=== PATIENT | female | born 1935 | race Caucasian/White ===

== ENCOUNTER → 2016-12-13 | Outpatient (CLI) | payer MEDICARE, BC ==
[~2016-12-13] MED LIST: ALBUTEROL0.83 MG/ML IH; AMOXICILLIN875 MG PO; ASPIRIN 32325 MG/TAB PO; CEPHALEXIN500 M1 PO; CIPRO 500MG TA500 MG PO; DROSPIRENONE; ELAVIL50 MG PO; FLONASE0.05 MG/AC NS; K-TAB20 PO; NEXIUM PO; RESTORIL30 MG PO; UNKNOWN BP MED; UNKNOWN CHOLESTEROL; ZOFRAN 4MG T4 MG/TAB PO
== END ==
LOC: MC.RAD 13:20
DX: Z12.31 Encounter for screening mammogram for malignant neoplasm of breast (principal)

== ENCOUNTER → 2018-10-21 | Outpatient (CLI) | payer MEDICARE, BC ==
[2018-10-21 15:59] LABS: COLLECTION METHOD RANDOM VOIDED
[2018-10-21 16:09] LABS: MUCOUS Present /lpf; PH 5 (5-8); SQUAMOUS EPITHELIAL 0-2 /hpf; URINE APPEARANCE Turbid; URINE BACTERIA Rare /hpf; URINE BILIRUBIN Negative (NEGATIVE); URINE BLOOD 1+ (NEGATIVE); URINE COLOR Yellow; URINE GLUCOSE Negative (NEGATIVE); URINE KETONE Trace (NEGATIVE); URINE LEUKOCYTE ESTERASE 2+ (NEGATIVE); URINE NITRATE Negative (NEGATIVE); URINE PROTEIN(semi-quant) 1+ (NEGATIVE); URINE WBC 20-50 /hpf
== END ==
LOC: ZCOL.LAB 15:18
PROVIDERS: Internal Medicine
DX: R41.82 Altered mental status, unspecified (principal); R41.0 Disorientation, unspecified

== ENCOUNTER → 2018-10-23 | Outpatient (CLI) | payer MEDICARE, BC ==
[2018-10-23 11:40] LABS: BASO # 0.1 (0.0-0.2); BASO % 0.9 % (0.0-2.0); EOS # 0.1 (0.0-0.7); GRAN # 4.8 (1.4-6.5); GRAN % 74.7 % (42.2-75.2); HEMATOCRIT 38.9 % (37.0-47.0); HEMOGLOBIN 12.6 g/dl (12.5-16.0); LYMPH # 0.9 (1.2-3.4); LYMPH % 13.7 % (20.0-51.0); MEAN CELL VOLUME 84 fl (80.0-100.0); MEAN CORPUSCULAR HEMOGLOBIN 27 pg (27.0-31.0); MEAN CORPUSCULAR HGB CONC 32 g/dl (33.0-37.0); MEAN PLATELET VOLUME 10.2 fl (7.4-10.4); MONO # 0.5 (0.1-0.6); MONO % 8.2 % (1.7-9.3); PLATELET COUNT 327 K/mm3 (130-400); RED BLOOD COUNT 4.63 M/mm3 (4.10-5.30); REDCELL DISTRIBUTION WIDTH-CV 13.5 % (11.5-14.5)
[2018-10-23 11:57] LABS: ALBUMIN 3.5 gm/dL (3.5-5.0); BILIRUBIN,TOTAL 0.6 mg/dL (0.0-1.0); CALCIUM 8.8 mg/dL (8.4-10.2); CREATININE, serum 0.65 mg/dL (0.52-1.25); POTASSIUM 3.5 mmol/L (3.4-5.0); TOTAL PROTEIN 6.4 gm/dL (6.4-8.2)
== END ==
LOC: ZCOL.LAB 11:30 → ZLAB.STJ 14:47
DX: R41.0 Disorientation, unspecified (principal); R41.82 Altered mental status, unspecified

== ENCOUNTER → 2018-12-26 | Outpatient (CLI) | payer MEDICARE, BC ==
[2018-12-26 13:24] LABS: COLLECTION METHOD CLEAN CATCH
[2018-12-26 15:03] LABS: MUCOUS Present /lpf; PH 7 (5-8); SQUAMOUS EPITHELIAL 0-2 /hpf; URINE APPEARANCE Cloudy; URINE BACTERIA Moderate /hpf; URINE BILIRUBIN Negative (NEGATIVE); URINE BLOOD 1+ (NEGATIVE); URINE COLOR Yellow; URINE GLUCOSE Negative (NEGATIVE); URINE KETONE Negative (NEGATIVE); URINE LEUKOCYTE ESTERASE 3+ (NEGATIVE); URINE NITRATE Positive (NEGATIVE); URINE PROTEIN(semi-quant) Negative (NEGATIVE); URINE UROBILINOGEN Negative (NEGATIVE); URINE WBC >50 /hpf
== END ==
LOC: ZCOL.LAB 13:20
DX: R30.0 Dysuria (principal); R41.82 Altered mental status, unspecified; R53.83 Other fatigue

== ENCOUNTER → 2019-01-09 | Outpatient (CLI) | payer MEDICARE, BC ==
[2019-01-09 14:40] LABS: COLLECTION METHOD CLEAN CATCH
[2019-01-09 15:04] LABS: MUCOUS Present /lpf; PH 5 (5-8); SQUAMOUS EPITHELIAL 0-2 /hpf; URINE APPEARANCE Cloudy; URINE BACTERIA None Seen /hpf; URINE BILIRUBIN Negative (NEGATIVE); URINE BLOOD Negative (NEGATIVE); URINE COLOR Yellow; URINE GLUCOSE Negative (NEGATIVE); URINE KETONE Negative (NEGATIVE); URINE LEUKOCYTE ESTERASE 3+ (NEGATIVE); URINE NITRATE Positive (NEGATIVE); URINE PROTEIN(semi-quant) Negative (NEGATIVE); URINE UROBILINOGEN Negative (NEGATIVE); URINE WBC >50 /hpf
== END ==
LOC: ZCOL.LAB 14:29
DX: R30.0 Dysuria (principal); R41.82 Altered mental status, unspecified; R53.83 Other fatigue

== ENCOUNTER → 2019-03-28 | Outpatient (CLI) | payer MEDICARE, BC ==
[2019-03-28 22:25] LABS: COLLECTION METHOD CLEAN CATCH
[2019-03-28 22:34] LABS: AMORPHOUS CRYSTAL Present /uL; MUCOUS Present /lpf; PH 5 (5-8); SQUAMOUS EPITHELIAL 0-2 /hpf; URINE APPEARANCE Clear; URINE BACTERIA None Seen /hpf; URINE BILIRUBIN Negative (NEGATIVE); URINE BLOOD Negative (NEGATIVE); URINE CALCIUM OXALATE CRYSTAL Present /hpf; URINE COLOR Yellow; URINE GLUCOSE Negative (NEGATIVE); URINE KETONE Negative (NEGATIVE); URINE LEUKOCYTE ESTERASE Trace (NEGATIVE); URINE NITRATE Negative (NEGATIVE); URINE PROTEIN(semi-quant) Negative (NEGATIVE); URINE RBC 0-2 /hpf; URINE UROBILINOGEN Negative (NEGATIVE)
== END ==
LOC: ZCOL.LAB 21:55
PROVIDERS: Family Medicine
DX: R41.82 Altered mental status, unspecified (principal)

== ENCOUNTER → 2019-06-25 | Outpatient (CLI) | payer MEDICARE, BC ==
[2019-06-25 16:44] LABS: COLLECTION METHOD CLEAN CATCH
[2019-06-25 18:04] LABS: MUCOUS Present /lpf; PH 5 (5-8); SQUAMOUS EPITHELIAL 0-2 /hpf; URINE APPEARANCE Cloudy; URINE BACTERIA Moderate /hpf; URINE BILIRUBIN Negative (NEGATIVE); URINE BLOOD Negative (NEGATIVE); URINE CALCIUM OXALATE CRYSTAL Present /hpf; URINE COLOR Yellow; URINE GLUCOSE Negative (NEGATIVE); URINE KETONE Negative (NEGATIVE); URINE LEUKOCYTE ESTERASE 3+ (NEGATIVE); URINE NITRATE Positive (NEGATIVE); URINE PROTEIN(semi-quant) Negative (NEGATIVE); URINE UROBILINOGEN Negative (NEGATIVE); URINE WBC >50 /hpf
== END ==
LOC: EDBD 16:18 → ZCOL.LAB 16:18
PROVIDERS: Family Medicine
DX: J44.9 Chronic obstructive pulmonary disease, unspecified (principal)

== ENCOUNTER → 2019-08-11 | Outpatient (CLI) | payer MEDICARE, BC ==
[2019-08-11 10:41] LABS: ALBUMIN 3.6 gm/dL (3.5-5.0); BILIRUBIN UNCONJUGATED 0.2 mg/dL (0.0-1.1); BILIRUBIN,TOTAL 0.2 mg/dL (0.0-1.0); TOTAL PROTEIN 6.5 gm/dL (6.4-8.2)
[2019-08-11 11:23] LABS: CHOLESTEROL RISK RATIO 3.8
[2019-08-11 11:24] LABS: PROLACTIN 77.4 ng/mL (3.0-18.6)
== END ==
LOC: ZCOL.LAB 07:49
PROVIDERS: Internal Medicine
DX: Z13.220 Encounter for screening for lipoid disorders (principal); E78.5 Hyperlipidemia, unspecified; D51.9 Vitamin B12 deficiency anemia, unspecified; E21.1 Secondary hyperparathyroidism, not elsewhere classified; R94.5 Abnormal results of liver function studies; R73.09 Other abnormal glucose

== ENCOUNTER → 2019-10-02 | Outpatient (CLI) | payer MEDICARE, BC ==
[~2019-10-02] MED LIST changes: +ATIVAN 0.50.5 MG/TAB PO
[2019-10-02 20:09] LABS: COLLECTION METHOD CLEAN CATCH
[2019-10-02 20:17] LABS: MUCOUS Present /lpf; PH 5 (5-8); SQUAMOUS EPITHELIAL None Seen /hpf; URINE APPEARANCE Clear; URINE BACTERIA Rare /hpf; URINE BILIRUBIN Negative (NEGATIVE); URINE BLOOD Negative (NEGATIVE); URINE COLOR Colorless; URINE GLUCOSE Negative (NEGATIVE); URINE KETONE Negative (NEGATIVE); URINE LEUKOCYTE ESTERASE Negative (NEGATIVE); URINE NITRATE Negative (NEGATIVE); URINE PROTEIN(semi-quant) Negative (NEGATIVE); URINE RBC 0-2 /hpf; URINE UROBILINOGEN Negative (NEGATIVE)
== END ==
LOC: ZCOL.LAB 19:45
PROVIDERS: Internal Medicine
DX: N39.0 Urinary tract infection, site not specified (principal)

== ENCOUNTER 2019-11-05 13:42 | Emergency (ER) | payer MEDICARE, BC ==
[~2019-11-05] VITALS: Ht 170.2 cm; Wt 66.4 kg
[2019-11-05 13:46] VITALS: BP 130/75; TEMP 98
[2019-11-05 16:27] VITALS: PULSE 70
== END 2019-11-05 16:27 | disposition home or self-care (01) ==
LOC: COL.ER 13:42
DX: S52.502A Unspecified fracture of the lower end of left radius, initial encounter for closed fracture (principal); S01.81XA Laceration without foreign body of other part of head, initial encounter; K21.9 Gastro-esophageal reflux disease without esophagitis; F03.90 Unspecified dementia, unspecified severity, without behavioral disturbance, psychotic disturbance, mood disturbance, and anxiety; R40.2412 Glasgow coma scale score 13-15, at arrival to emergency department; W01.0XXA Fall on same level from slipping, tripping and stumbling without subsequent striking against object, initial encounter; Y92.129 Unspecified place in nursing home as the place of occurrence of the external cause
CPT/HCPCS: Q4050

== ENCOUNTER 2019-11-24 13:09 | Emergency (ER) | payer MEDICARE, BC ==
[~2019-11-24] VITALS: Ht 170.2 cm; Wt 59.1 kg
[2019-11-24 13:18] VITALS: TEMP 98
[2019-11-24 14:23] LABS: BASO # 0.1 (0.0-0.2); BASO % 1.4 % (0.0-2.0); EOS # 0.7 (0.0-0.7); GRAN # 6.7 (1.4-6.5); GRAN % 67.5 % (42.2-75.2); HEMOGLOBIN 11.2 g/dl (12.5-16.0); LYMPH # 1.5 (1.2-3.4); LYMPH % 14.9 % (20.0-51.0); MEAN CELL VOLUME 86 fl (80.0-100.0); MEAN CORPUSCULAR HEMOGLOBIN 27 pg (27.0-31.0); MEAN CORPUSCULAR HGB CONC 31 g/dl (33.0-37.0); MEAN PLATELET VOLUME 9.5 fl (7.4-10.4); MONO # 0.9 (0.1-0.6); PLATELET COUNT 316 K/mm3 (130-400); RED BLOOD COUNT 4.14 M/mm3 (4.10-5.30); REDCELL DISTRIBUTION WIDTH-CV 13.8 % (11.5-14.5)
[2019-11-24 14:28] LABS: HEMATOCRIT 35.7 % (37.0-47.0)
[2019-11-24 14:35] LABS: CALCIUM 8.5 mg/dL (8.4-10.2); CREATININE, serum 0.68 (0.52-1.25); POTASSIUM 4.6 mmol/L (3.4-5.0)
[2019-11-24 14:44] LABS: PROTHROMBIN TIME 11.2 SECONDS (9.7-12.8)
[2019-11-24 14:47] LABS: PARTIAL THROMBOPLASTIN TIME 29.6 SECONDS (26.0-37.0)
[2019-11-24 16:35] VITALS: BP 148/74; PULSE 71
== END 2019-11-24 16:35 | disposition home or self-care (01) ==
LOC: COL.ER 13:09
PROVIDERS: Emergency Medicine
DX: S70.02XA Contusion of left hip, initial encounter (principal); W19.XXXA Unspecified fall, initial encounter; Y92.129 Unspecified place in nursing home as the place of occurrence of the external cause

== ENCOUNTER → 2019-11-26 | Outpatient (CLI) | payer MEDICARE, BC ==
[2019-11-26 08:39] LABS: BASO # 0.1 (0.0-0.2); BASO % 1.6 % (0.0-2.0); EOS # 0.7 (0.0-0.7); EOS % 8.4 % (0-4.0); GRAN # 4.6 (1.4-6.5); HEMOGLOBIN 10.9 g/dl (12.5-16.0); LYMPH # 1.7 (1.2-3.4); MEAN CELL VOLUME 87 fl (80.0-100.0); MEAN CORPUSCULAR HEMOGLOBIN 27 pg (27.0-31.0); MEAN CORPUSCULAR HGB CONC 32 g/dl (33.0-37.0); MEAN PLATELET VOLUME 9.9 fl (7.4-10.4); MONO % 11.8 % (1.7-9.3); PLATELET COUNT 315 K/mm3 (130-400); REDCELL DISTRIBUTION WIDTH-CV 14.3 % (11.5-14.5)
[2019-11-26 08:41] LABS: HEMATOCRIT 34.6 % (37.0-47.0)
== END ==
LOC: ZCOL.LAB 08:15
PROVIDERS: Internal Medicine
DX: J44.9 Chronic obstructive pulmonary disease, unspecified (principal); R68.89 Other general symptoms and signs

== ENCOUNTER 2019-12-05 14:52 | Emergency (ER) | payer MEDICARE, BC ==
[~2019-12-05] VITALS: Ht 170.2 cm; Wt 59.1 kg
[~2019-12-05 14:52] MED LIST changes: +NEXIUM 20MG20 MG PO
[2019-12-05 14:59] VITALS: BP 132/69; PULSE 72; TEMP 98.3
[2019-12-05 16:26] LABS: BASO # 0.1 (0.0-0.2); BASO % 0.8 % (0.0-2.0); EOS # 0.5 (0.0-0.7); EOS % 6.6 % (0-4.0); GRAN # 4.9 (1.4-6.5); HEMOGLOBIN 10.7 g/dl (12.5-16.0); LYMPH # 1.4 (1.2-3.4); LYMPH % 17.4 % (20.0-51.0); MEAN CELL VOLUME 87 fl (80.0-100.0); MEAN CORPUSCULAR HEMOGLOBIN 27 pg (27.0-31.0); MEAN CORPUSCULAR HGB CONC 32 g/dl (33.0-37.0); MEAN PLATELET VOLUME 8.8 fl (7.4-10.4); MONO # 1.1 (0.1-0.6); MONO % 13.9 % (1.7-9.3); PLATELET COUNT 273 K/mm3 (130-400); REDCELL DISTRIBUTION WIDTH-CV 14.8 % (11.5-14.5)
[2019-12-05 16:28] LABS: HEMATOCRIT 33.8 % (37.0-47.0)
[2019-12-05 16:35] LABS: PROTHROMBIN TIME 11.2 SECONDS (9.7-12.8)
[2019-12-05 16:37] LABS: PARTIAL THROMBOPLASTIN TIME 28.5 SECONDS (26.0-37.0)
[2019-12-05 16:39] LABS: ALBUMIN 3.9 gm/dL (3.5-5.0); BILIRUBIN,TOTAL 0.7 mg/dL (0.0-1.0); C-REACTIVE PROTEIN 1.7 mg/dL (0.0-0.9); CALCIUM 9.1 mg/dL (8.4-10.2); CREATININE, serum 0.65 (0.52-1.25); POTASSIUM 4.3 mmol/L (3.4-5.0); TOTAL PROTEIN 6.8 gm/dL (6.4-8.2)
== END 2019-12-05 17:10 | disposition home or self-care (01) ==
LOC: COL.ER 14:52
PROVIDERS: Emergency Medicine
DX: S70.12XA Contusion of left thigh, initial encounter (principal); I10 Essential (primary) hypertension; F03.90 Unspecified dementia, unspecified severity, without behavioral disturbance, psychotic disturbance, mood disturbance, and anxiety; W19.XXXA Unspecified fall, initial encounter

== ENCOUNTER → 2019-12-22 | Outpatient (CLI) | payer MEDICARE, BC | LOC: BHSO 10:44 | DX: F33.41 Major depressive disorder, recurrent, in partial remission (principal) ==

== ENCOUNTER → 2020-02-05 | Outpatient (CLI) | payer MEDICARE, BC ==
[2020-02-05 17:23] LABS: BASO # 0.1 (0.0-0.2); BASO % 1.8 % (0.0-2.0); EOS # 1.2 (0.0-0.7); EOS % 17.7 % (0-4.0); GRAN # 2.9 (1.4-6.5); GRAN % 43.1 % (42.2-75.2); HEMATOCRIT 40.7 % (37.0-47.0); HEMOGLOBIN 12.6 g/dl (12.5-16.0); LYMPH # 1.8 (1.2-3.4); LYMPH % 26.6 % (20.0-51.0); MEAN CELL VOLUME 90 fl (80.0-100.0); MEAN CORPUSCULAR HEMOGLOBIN 28 pg (27.0-31.0); MEAN CORPUSCULAR HGB CONC 31 g/dl (33.0-37.0); MEAN PLATELET VOLUME 9.9 fl (7.4-10.4); MONO # 0.7 (0.1-0.6); MONO % 10.7 % (1.7-9.3); PLATELET COUNT 259 K/mm3 (130-400); RED BLOOD COUNT 4.54 M/mm3 (4.10-5.30); REDCELL DISTRIBUTION WIDTH-CV 13.9 % (11.5-14.5)
[2020-02-05 18:28] LABS: ALBUMIN 3.6 gm/dL (3.5-5.0); BILIRUBIN,TOTAL 0.4 mg/dL (0.0-1.0); CALCIUM 9.5 mg/dL (8.4-10.2); CREATININE, serum 0.69 (0.52-1.25); TOTAL PROTEIN 6.3 gm/dL (6.4-8.2)
[2020-02-05 20:03] LABS: VALPROIC ACID (DEPAKENE) 13.9 ug/mL (50.0-100.0)
== END ==
LOC: EDBD 16:54 → ZCOL.LAB 16:54
PROVIDERS: Internal Medicine
DX: Z51.81 Encounter for therapeutic drug level monitoring (principal); L76.32 Postprocedural hematoma of skin and subcutaneous tissue following other procedure; I10 Essential (primary) hypertension; E55.9 Vitamin D deficiency, unspecified

== ENCOUNTER → 2020-04-13 | Outpatient (CLI) | payer MEDICARE, BC | LOC: BHSO 08:40 ==

== ENCOUNTER 2020-04-23 16:48 | Emergency (ER) | payer MEDICARE, BC ==
[~2020-04-23] VITALS: Ht 170.2 cm; Wt 64.5 kg
[2020-04-23 16:50] VITALS: TEMP 98.3
[2020-04-23 18:27] VITALS: BP 143/72; PULSE 65
== END 2020-04-23 18:30 | disposition home or self-care (01) ==
LOC: COL.ER 16:48
DX: S60.212A Contusion of left wrist, initial encounter (principal); R40.2412 Glasgow coma scale score 13-15, at arrival to emergency department; F03.90 Unspecified dementia, unspecified severity, without behavioral disturbance, psychotic disturbance, mood disturbance, and anxiety; W01.0XXA Fall on same level from slipping, tripping and stumbling without subsequent striking against object, initial encounter; Y92.129 Unspecified place in nursing home as the place of occurrence of the external cause

== ENCOUNTER → 2020-08-03 | Outpatient (CLI) | payer MEDICARE, BC | LOC: ZCOL.LAB 07:13 | DX: E72.20 Disorder of urea cycle metabolism, unspecified (principal); E55.9 Vitamin D deficiency, unspecified; R94.5 Abnormal results of liver function studies; R68.89 Other general symptoms and signs; R73.09 Other abnormal glucose; T42.6X1A Poisoning by other antiepileptic and sedative-hypnotic drugs, accidental (unintentional), initial encounter ==

== ENCOUNTER → 2020-08-04 | Outpatient (CLI) | payer MEDICARE, BC ==
[2020-08-04 10:25] LABS: BASO # 0.1 (0.0-0.2); BASO % 1.3 % (0.0-2.0); EOS # 1.1 (0.0-0.7); EOS % 15.9 % (0-4.0); GRAN # 3.1 (1.4-6.5); GRAN % 44.1 % (42.2-75.2); HEMOGLOBIN 11.2 g/dl (12.5-16.0); LYMPH # 1.8 (1.2-3.4); LYMPH % 25.9 % (20.0-51.0); MEAN CELL VOLUME 90 fl (80.0-100.0); MEAN CORPUSCULAR HEMOGLOBIN 28 pg (27.0-31.0); MEAN CORPUSCULAR HGB CONC 31 g/dl (33.0-37.0); MONO # 0.9 (0.1-0.6); MONO % 12.5 % (1.7-9.3); PLATELET COUNT 263 K/mm3 (130-400); RED BLOOD COUNT 3.97 M/mm3 (4.10-5.30); REDCELL DISTRIBUTION WIDTH-CV 13.9 % (11.5-14.5)
[2020-08-04 10:28] LABS: HEMATOCRIT 35.7 % (37.0-47.0)
[2020-08-04 10:31] LABS: ALBUMIN 3.3 gm/dL (3.5-5.0); BILIRUBIN UNCONJUGATED 0.3 mg/dL (0.0-1.1); BILIRUBIN,DIRECT 0.1 mg/dL (0.0-0.4); BILIRUBIN,TOTAL 0.4 mg/dL (0.0-1.0); TOTAL PROTEIN 5.9 gm/dL (6.4-8.2)
[2020-08-04 10:49] LABS: HEMOGLOBIN A1C 5.1 %
== END ==
LOC: ZCOL.LAB 09:45
PROVIDERS: Internal Medicine
DX: E72.20 Disorder of urea cycle metabolism, unspecified (principal); R94.5 Abnormal results of liver function studies; R73.09 Other abnormal glucose; E55.9 Vitamin D deficiency, unspecified

== ENCOUNTER → 2020-08-19 | Outpatient (CLI) | payer MEDICARE, BC ==
[2020-08-19 09:01] LABS: IRON,SERUM 86 ug/dL (35-150)
[2020-08-19 09:11] LABS: TOTAL IRON BINDING CAPACITY 308 ug/dL (265-497)
== END ==
LOC: ZCOL.LAB 08:30
PROVIDERS: Internal Medicine
DX: D50.9 Iron deficiency anemia, unspecified (principal); D51.9 Vitamin B12 deficiency anemia, unspecified

== ENCOUNTER 2020-10-08 22:33 | Emergency (ER) | payer MEDICARE, BC ==
[~2020-10-08] VITALS: Ht 167.6 cm; Wt 81.8 kg
[2020-10-08 22:35] VITALS: BP 151/95; TEMP 98.7
[2020-10-08 23:30] VITALS: PULSE 70
== END 2020-10-08 23:30 | disposition home or self-care (01) ==
LOC: COL.ER 22:33
DX: S01.122A Laceration with foreign body of left eyelid and periocular area, initial encounter (principal); K21.9 Gastro-esophageal reflux disease without esophagitis; W19.XXXA Unspecified fall, initial encounter

== ENCOUNTER → 2020-11-05 | Outpatient (CLI) | payer MEDICARE, BC ==
[2020-11-05 12:52] LABS: BASO # 0.1 (0.0-0.2); BASO % 1.2 % (0.0-2.0); EOS # 1.2 (0.0-0.7); EOS % 13.1 % (0-4.0); GRAN # 4.7 (1.4-6.5); GRAN % 52.7 % (42.2-75.2); HEMATOCRIT 39.5 % (37.0-47.0); HEMOGLOBIN 12.5 g/dl (12.5-16.0); LYMPH # 2.1 (1.2-3.4); LYMPH % 23.2 % (20.0-51.0); MEAN CELL VOLUME 89 fl (80.0-100.0); MEAN CORPUSCULAR HEMOGLOBIN 28 pg (27.0-31.0); MEAN CORPUSCULAR HGB CONC 32 g/dl (33.0-37.0); MEAN PLATELET VOLUME 10.2 fl (7.4-10.4); MONO # 0.9 (0.1-0.6); MONO % 9.6 % (1.7-9.3); PLATELET COUNT 300 K/mm3 (130-400); RED BLOOD COUNT 4.44 M/mm3 (4.10-5.30); REDCELL DISTRIBUTION WIDTH-CV 13.8 % (11.5-14.5)
[2020-11-05 13:20] LABS: ALBUMIN 3.9 gm/dL (3.5-5.0); BILIRUBIN,TOTAL 0.5 mg/dL (0.0-1.0); CALCIUM 9.4 mg/dL (8.4-10.2); CHOLESTEROL RISK RATIO 4.9; CREATININE, serum 0.74 (0.52-1.25); POTASSIUM 4.7 mmol/L (3.4-5.0); TOTAL PROTEIN 6.8 gm/dL (6.4-8.2)
[2020-11-05 13:41] LABS: VALPROIC ACID (DEPAKENE) 16.8 ug/mL (50.0-100.0)
[2020-11-05 13:50] LABS: THYROID STIMULATING HORMONE 1.06 uIU/mL (0.465-4.680)
== END ==
LOC: ZCOL.LAB 12:27
PROVIDERS: Psychiatry & Neurology Psychiatry
DX: Z79.899 Other long term (current) drug therapy (principal)

== ENCOUNTER → 2020-11-24 | Outpatient (CLI) | payer MEDICARE, BC ==
[2020-11-24 09:04] LABS: COLLECTION METHOD CLEAN CATCH
[2020-11-24 09:13] LABS: MUCOUS Present /lpf; PH 6 (5-8); SQUAMOUS EPITHELIAL 0-2 /hpf; URINE APPEARANCE Clear; URINE BACTERIA None Seen /hpf; URINE BILIRUBIN Negative (NEGATIVE); URINE BLOOD Negative (NEGATIVE); URINE COLOR Yellow; URINE GLUCOSE Negative (NEGATIVE); URINE KETONE Negative (NEGATIVE); URINE LEUKOCYTE ESTERASE 3+ (NEGATIVE); URINE NITRATE Negative (NEGATIVE); URINE PROTEIN(semi-quant) Negative (NEGATIVE); URINE RBC 0-2 /hpf; URINE UROBILINOGEN Negative (NEGATIVE)
== END ==
LOC: ZCOL.LAB 08:43
PROVIDERS: Internal Medicine
DX: N39.0 Urinary tract infection, site not specified (principal)

== ENCOUNTER → 2020-12-21 | Outpatient (CLI) | payer MEDICARE, BC ==
[~2020-12-21] MED LIST changes: +ATIVAN 1MG T1 MG/TAB PO; +BACTRIM DS 8001 TAB PO; +DEPAKOTE 125MG125 M1 PO; +DULCOLAX S10 MG/SUPP RC; +MASON NATURAL2000 IU PO; +NORVASC 5MG5 MG/TAB PO; +REMERON 15M15 MG/TA1 PO; +ROXANOL 20MG20 MG/ML SL; +SALINE 45 ML45 ML NS; +SEROQUEL 2525 MG/TAB PO; +SEROQUEL50 MG PO; +SYSTANE 0.3-0.1 EACH OP; +TRANSDERM-0.5 MG/21 TD; +TYLENOL 500MG500 MG PO; +ZOFRAN ODT4 MG PO; +ZOLOFT 100MG100 MG PO
[2020-12-21 11:59] LABS: BASO # 0.1 (0.0-0.2); BASO % 0.6 % (0.0-2.0); CALCIUM 9.1 mg/dL (8.4-10.2); CREATININE, serum 0.69 (0.52-1.25); EOS # 0.5 (0.0-0.7); EOS % 3.6 % (0-4.0); GRAN # 9.6 (1.4-6.5); GRAN % 75.1 % (42.2-75.2); HEMOGLOBIN 11.3 g/dl (12.5-16.0); LYMPH # 1.7 (1.2-3.4); LYMPH % 13.5 % (20.0-51.0); MEAN CELL VOLUME 89 fl (80.0-100.0); MEAN CORPUSCULAR HEMOGLOBIN 28 pg (27.0-31.0); MEAN CORPUSCULAR HGB CONC 31 g/dl (33.0-37.0); MONO # 0.9 (0.1-0.6); PLATELET COUNT 332 K/mm3 (130-400); RED BLOOD COUNT 4.04 M/mm3 (4.10-5.30)
[2020-12-21 12:01] LABS: HEMATOCRIT 36.1 % (37.0-47.0)
[2020-12-21 12:27] LABS: THYROID STIMULATING HORMONE 0.553 uIU/mL (0.465-4.680)
== END ==
LOC: ZCOL.LAB 11:37
PROVIDERS: Internal Medicine
DX: R53.83 Other fatigue (principal)

== ENCOUNTER → 2021-01-26 | Outpatient (CLI) | payer MEDICARE, BC ==
[2021-01-26 17:02] LABS: COLLECTION METHOD CLEAN CATCH
[2021-01-26 17:25] LABS: MUCOUS Present /lpf; PH 5 (5-8); SQUAMOUS EPITHELIAL 0-2 /hpf; URINE APPEARANCE Cloudy; URINE BACTERIA Rare /hpf; URINE BILIRUBIN Negative (NEGATIVE); URINE BLOOD 2+ (NEGATIVE); URINE COLOR Yellow; URINE GLUCOSE Negative (NEGATIVE); URINE KETONE Negative (NEGATIVE); URINE LEUKOCYTE ESTERASE 3+ (NEGATIVE); URINE NITRATE Negative (NEGATIVE); URINE PROTEIN(semi-quant) 1+ (NEGATIVE); URINE UROBILINOGEN Negative (NEGATIVE)
== END ==
LOC: ZCOL.LAB 16:52
PROVIDERS: Internal Medicine
DX: N39.0 Urinary tract infection, site not specified (principal)

== ENCOUNTER 2021-01-28 09:18 | Inpatient (IN) | payer MEDICARE, BC ==
[~2021-01-28] VITALS: Ht 167.6 cm; Wt 69.7 kg
[~2021-01-28 09:18] MED LIST changes: -ATIVAN 1MG T1 MG/TAB PO; -BACTRIM DS 8001 TAB PO; -DEPAKOTE 125MG125 M1 PO; -DULCOLAX S10 MG/SUPP RC; -MASON NATURAL2000 IU PO; -NORVASC 5MG5 MG/TAB PO; -REMERON 15M15 MG/TA1 PO; -ROXANOL 20MG20 MG/ML SL; -SALINE 45 ML45 ML NS; -SEROQUEL 2525 MG/TAB PO; -SEROQUEL50 MG PO; -SYSTANE 0.3-0.1 EACH OP; -TRANSDERM-0.5 MG/21 TD; -TYLENOL 500MG500 MG PO; -ZOFRAN ODT4 MG PO; -ZOLOFT 100MG100 MG PO
[2021-01-28 09:39] LABS: HEMOGLOBIN 11.4 g/dl (12.5-16.0); MEAN CELL VOLUME 86 fl (80.0-100.0); MEAN CORPUSCULAR HEMOGLOBIN 27 pg (27.0-31.0); MEAN CORPUSCULAR HGB CONC 31 g/dl (33.0-37.0); PLATELET COUNT 444 K/mm3 (130-400); RED BLOOD COUNT 4.24 M/mm3 (4.10-5.30); REDCELL DISTRIBUTION WIDTH-CV 13.1 % (11.5-14.5)
[2021-01-28 09:41] LABS: HEMATOCRIT 36.5 % (37.0-47.0)
[2021-01-28 09:51] LABS: ALBUMIN 3.6 gm/dL (3.5-5.0); BILIRUBIN,TOTAL 0.2 mg/dL (0.0-1.0); CALCIUM 8.7 mg/dL (8.4-10.2); CREATININE, serum 0.62 (0.52-1.25)
[2021-01-28 10:10] LABS: TROPONIN-I 0.192 ng/mL (0.000-0.035)
[2021-01-28 10:31] LABS: MUCOUS Present /lpf; PH 5 (5-8); SQUAMOUS EPITHELIAL None Seen /hpf; URINE APPEARANCE Hazy; URINE BACTERIA Rare /hpf; URINE BILIRUBIN Negative (NEGATIVE); URINE BLOOD 1+ (NEGATIVE); URINE COLOR Yellow; URINE GLUCOSE Negative (NEGATIVE); URINE KETONE Negative (NEGATIVE); URINE LEUKOCYTE ESTERASE Trace (NEGATIVE); URINE NITRATE Positive (NEGATIVE); URINE PROTEIN(semi-quant) Negative (NEGATIVE); URINE RBC 0-2 /hpf; URINE UROBILINOGEN Negative (NEGATIVE)
[2021-01-28 10:35] LABS: BAND 8 % (0-10); LYMPHOCYTE 4 % (20.0-51.0); NEUTROPHILS 84 % (42.0-75.2); PLATELET ESTIMATE INCREASED (NORMAL)
[2021-01-28] MEDS ORDERED: NORVASC 5MG5 MG/TAB PO (11:32)
[2021-01-28] MEDS ORDERED: REMERON 15M15 MG/TA1 PO (11:33)
[2021-01-28] MEDS ORDERED: SEROQUEL50 MG PO (11:36)
[2021-01-28] MEDS ORDERED: MASON NATURAL2000 IU PO (11:38)
[2021-01-28] MEDS ORDERED: ZOLOFT 100MG100 MG PO (11:38)
[2021-01-28] MEDS ORDERED: TYLENOL 500MG500 MG PO (11:40)
[2021-01-28] MEDS ORDERED: BACTRIM DS 8001 TAB PO (11:41)
[2021-01-28] MEDS ORDERED: SEROQUEL 2525 MG/TAB PO (11:42)
[2021-01-28] MEDS ORDERED: SALINE 45 ML45 ML NS (11:43)
[2021-01-28] MEDS ORDERED: ZOFRAN ODT4 MG PO (11:46)
[2021-01-28] MEDS ORDERED: DEPAKOTE 125MG125 M1 PO (13:43)
[2021-01-28 15:49] LABS: COLLECTION METHOD CATHETER
[2021-01-28 15:57] VITALS: BP 115/63; PULSE 90; TEMP 97.7
--- NOTE | 2021-01-28 18:18 | NUR ---
Pt into room 355. She is alert and pleasantly confused. Pt does state her birthday [birth year], all documents record [birth year]. Attempted to gather patients medications from her PCP, only a face sheet was faxed to us. Pt denies any pain at all. Breathing is tachy, lungs coarse and wet cough present, discussed this as well as IVF with provider. Continues to pull her oxygen off, frequent reminders needed. Fall precautions in place. Heparin drip infusing. Physician's aware of elevated troponin. Rita ALEXANDER.
[2021-01-28 19:36] VITALS: BP 109/59; PULSE 83; TEMP 98.2
--- NOTE | 2021-01-28 20:15 | NUR ---
Initial shift assessment done- pt confused, very pleasant, cooperative-- IV to left AC was pulled out by patient,, linens changed and new gown applied,, new IV site to left FA started at this time, 22g. Tele on, NPO, Heparin drip at 8cc/hr, to left FA site, and Potassium per protocol is infusing per R/FA -giving slower due to vein irritation--next hepXA to be drawn at 2100. Close to nsg station, bed alarm on.
--- NOTE | 2021-01-28 22:59 | NUR ---
hEPxa RESULTS 0.07,, Heparin IV bolus of 1000units given and rate increased to 10.5cc/hr /1050units /hr.
[2021-01-29 00:10] VITALS: BP 103/65; PULSE 84; TEMP 98
--- NOTE | 2021-01-29 02:00 | NUR ---
R/FA IV was pulled out by patient,,restarted a 22g in right wrist without problems-- pt remains very confused but pleasant and cooperative-- continues with heparin drip at 10.5cc/hr to left wrist -- getting potassium IV per protocol to right wrist IV site
[2021-01-29 04:50] VITALS: BP 111/66; PULSE 82; TEMP 98.7
[2021-01-29 06:37] LABS: CALCIUM 8.2 mg/dL (8.4-10.2); CHOLESTEROL RISK RATIO 4.5; CREATININE, serum 0.7 (0.52-1.25); MAGNESIUM 2.4 mg/dL (1.6-2.3); POTASSIUM 3.8 mmol/L (3.4-5.0)
--- NOTE | 2021-01-29 06:43 | NUR ---
Did rest some during the night-VSS, o2 sats 92% on 3L/nc. Waiting for hepxA result that was drawn about 45minutes ago-heparin drip at 10.5cc/hr at this time. NPO.
[2021-01-29 06:49] LABS: MEAN CELL VOLUME 89 fl (80.0-100.0); MEAN CORPUSCULAR HGB CONC 30 g/dl (33.0-37.0); MEAN PLATELET VOLUME 9.7 fl (7.4-10.4); RED BLOOD COUNT 3.25 M/mm3 (4.10-5.30); REDCELL DISTRIBUTION WIDTH-CV 13.3 % (11.5-14.5)
[2021-01-29 06:51] LABS: TROPONIN-I 4.55 ng/mL (0.000-0.035)
[2021-01-29 07:38] LABS: HEMOGLOBIN 8.8 g/dl (12.5-16.0); MEAN CORPUSCULAR HEMOGLOBIN 27 pg (27.0-31.0); PLATELET COUNT 296 K/mm3 (130-400)
--- NOTE | 2021-01-29 08:00 | NUR ---
MD Ophelia here on unit - notified of drop in Hemoglobin, Hemoatocrit, Platelts and that pt remains on heparin gtt - no orders recieved to hold or discontinue heparin gtt MD also aware of upward trending Troponin I levels
--- NOTE | 2021-01-29 08:35 | NUR ---
Mitts applied to hands d/t confusion and self IV discontinuation - pt pleasant and unable to provide rational for pulling out IV. Pt tolerated mitt application well and tolerating well.
[2021-01-29 09:01] LABS: BAND 13 % (0-10); LYMPHOCYTE 4 % (20.0-51.0); NEUTROPHILS 75 % (42.0-75.2)
[2021-01-29 09:07] VITALS: BP 119/60; PULSE 85; TEMP 98.3
[2021-01-29 12:23] VITALS: BP 112/62; PULSE 82; TEMP 98.5
[2021-01-29 14:08] LABS: MEAN CELL VOLUME 86 fl (80.0-100.0); MEAN CORPUSCULAR HGB CONC 31 g/dl (33.0-37.0); MEAN PLATELET VOLUME 9.2 fl (7.4-10.4); PLATELET COUNT 289 K/mm3 (130-400); RED BLOOD COUNT 3.24 M/mm3 (4.10-5.30); REDCELL DISTRIBUTION WIDTH-CV 13.3 % (11.5-14.5)
[2021-01-29 14:09] LABS: HEMATOCRIT 27.8 % (37.0-47.0); HEMOGLOBIN 8.7 g/dl (12.5-16.0); MEAN CORPUSCULAR HEMOGLOBIN 27 pg (27.0-31.0)
[2021-01-29 15:53] VITALS: BP 118/80; PULSE 91; TEMP 98.4
--- NOTE | 2021-01-29 16:07 | NUR ---
SW is following care to support safe discharge. ERMA notes patient may need additional care. Patient is from [facility] Coordinator is Apolinar Oquendo [phone]. ERMA called Son Calin Tirado awaiting return call [phone]. Will need assessment for pt/ot/ to support patient needs. Will need to follow-up. I did not met with patient on care yet. Placed a copy of DPOA on Chart.
[2021-01-29 19:07] VITALS: BP 125/59; PULSE 89; TEMP 98.7
--- NOTE | 2021-01-29 20:30 | NUR ---
Initial shift assessment done- confused, agitated more tonight-- has mitts on due to pulling out IV,s,,, she does not like them on--trying to get them off,, Tele on, Rita with clear yellow urine-- heparing drip continues at 12cc/hr,, next hepxa in AM-- Will start a second IV due to potassium protocol--will need to give 6 IV doses of 10meq tonight,, 22 g started to left FA. O2 sats 90% on 4.5-5L/nc.. Remains NPO. Denies pain.
--- NOTE | 2021-01-29 22:00 | NUR ---
Pt did states that she was in pain- agitated-- tried to assess where pain was and pt did say her "Back"-- will give IV Morphine as ordered.
[2021-01-30 00:18] VITALS: BP 129/62; PULSE 87; TEMP 99
--- NOTE | 2021-01-30 00:45 | NUR ---
Patient has been resting quietly since the Morphine was given close to 3 hours ago,, o2 sat was 88% on 5L/nc at this time-, Kristine called to see inform of increase o2 needs-- she was up to see patient, pt does say she is SOB, but denies chest pain. ABG,s ,Portable CXR ordered, also respiratory to give a duoneb treatment at this time.
[2021-01-30 01:15] LABS: ARTERIAL BLD GAS O2 SATURATION 92.5 % (92-100); ARTERIAL BLOOD GAS BASE EXCESS 0.2 (-2-2); ARTERIAL BLOOD GAS HCO3 24.8 meq/L (22-26); ARTERIAL BLOOD GAS PCO2 40.2 mmHg (35-45); ARTERIAL BLOOD GAS PO2 65.3 mmHg (80-100); ARTERIAL BLOOD GAS pH 7.41 (7.35-7.45)
[2021-01-30 03:15] VITALS: BP 128/62; PULSE 84; TEMP 98.4
--- NOTE | 2021-01-30 03:15 | NUR ---
o2 SATS AT 91% on 6L/nc,,pt resting quietly, Kristine aware of ABG,,s, aslo waiting for Radiology to read CXR, Kristine did come check on patient-- pt resting. no distress, VSS
--- NOTE | 2021-01-30 06:44 | NUR ---
FOUND WITH O2 OFF 79% RA. PLACED BACK ON 6 LPM NC AFTER BREATING TX SPO2 90% RN NOTIFIED
--- NOTE | 2021-01-30 07:00 | NUR ---
Report received fro MIR Duncan. Pt in bed resting with eyes open, denies needs, bed alarm on, 02 in nose, will ocnitnue to monitor.
[2021-01-30 07:42] LABS: MEAN CELL VOLUME 87 fl (80.0-100.0); MEAN CORPUSCULAR HGB CONC 31 g/dl (33.0-37.0); MEAN PLATELET VOLUME 9.6 fl (7.4-10.4); PLATELET COUNT 292 K/mm3 (130-400); RED BLOOD COUNT 3.27 M/mm3 (4.10-5.30); REDCELL DISTRIBUTION WIDTH-CV 13.6 % (11.5-14.5)
[2021-01-30 07:47] LABS: HEMATOCRIT 28.4 % (37.0-47.0); HEMOGLOBIN 8.8 g/dl (12.5-16.0); MEAN CORPUSCULAR HEMOGLOBIN 27 pg (27.0-31.0)
[2021-01-30 07:59] LABS: CALCIUM 8.4 mg/dL (8.4-10.2); CREATININE, serum 0.6 (0.52-1.25); POTASSIUM 3.8 mmol/L (3.4-5.0)
--- NOTE | 2021-01-30 08:25 | NUR ---
Vancomycin Initial Dosing Pharmacy Note Ordering provider: Sony Díaz MD Indication/duration: PNA LABS: eCrCl~65 mL/min Recommendation: Loading dose: 1 gram 01/30/21 @ 08:30 Maintenance dose: 750 mg every 12 hours Trough goal: 15-20 ug/mL Pharmacy will continue to follow.
[2021-01-30 09:01] LABS: BAND 2 % (0-10); BASOPHIL 2 % (0-2); EOSINOPHIL 1 % (0-4); HYPOCHROMIA 1+; LYMPHOCYTE 6 % (20.0-51.0); NEUTROPHILS 78 % (42.0-75.2); PLATELET ESTIMATE NORMAL (NORMAL)
--- NOTE | 2021-01-30 11:11 | NUR ---
Assessment charted. PT is very pleasant but completely disoriented. IVF to RW. Hep gtt to LFA. Deniesp nadir. DId have 02 out of nose on entry but replacedeasily. Lungs are very course, wheezes expiratory. O2 at 6LNC. Emir continue to monitor.
[2021-01-30 11:57] VITALS: BP 163/69; PULSE 77; TEMP 97.5
--- NOTE | 2021-01-30 12:02 | NUR ---
Patient is confused, and so SW contacted patient's DPOA to conduct intake assessment. DPOA did not answer the phone, and so message was left.
--- NOTE | 2021-01-30 12:14 | NUR ---
Visitors on file are cleared by MADHAVI Pena, to be provided with all information they request regarding pt status. Son and his updated on pt status and labs reviewed, they will be considering travel from [place] at this time.
[2021-01-30 15:20] VITALS: BP 126/77; PULSE 78; TEMP 97.7
--- NOTE | 2021-01-30 18:37 | NUR ---
Pt pulled out 3 IVs today, very pleasant ubt very confused, has a hard time tracking. Rested off and on at times, deneis needs, bed alarm on, will give bedside shift report to nightshift nurse who will resume care.
[2021-01-30 19:18] VITALS: BP 171/45; PULSE 64; TEMP 97.5
--- NOTE | 2021-01-30 20:00 | NUR ---
Assessment complete. Patient is alert and pleasantly confused, only oriented to name. She wears 7 liters hi-freida oxygen; Her lung sounds are very coarse with crackles throughout; RT states this is worse than last night; TERESA Carmona notified and orders to hold IV fluids for tonight. No edema is noted. Salinas is draining urine correctly. Heparin gtt infusing into right forearm IV. Call light in reach and bed alarm set.
[2021-01-30 22:51] VITALS: BP 133/54; PULSE 84; TEMP 98.3
--- NOTE | 2021-01-30 23:55 | NUR ---
Patient pulled out both IV's. New IV's initiated in right upper arm and left forearm. Patient appears increasingly agitated; Ativan administered with no result one hour later. Morphine administered and patient is now resting peacefully. Bed alarm set. Will continue to monitor.
[2021-01-31 04:47] VITALS: BP 162/67; PULSE 80; TEMP 98.2
[2021-01-31 05:34] LABS: ARTERIAL BLD GAS O2 SATURATION 94.7 % (92-100); ARTERIAL BLD GAS TCO2 CT 25.1; ARTERIAL BLOOD GAS BASE EXCESS -0.5 (-2-2); ARTERIAL BLOOD GAS HCO3 23.9 meq/L (22-26); ARTERIAL BLOOD GAS PCO2 38.1 mmHg (35-45); ARTERIAL BLOOD GAS PO2 73.1 mmHg (80-100); ARTERIAL BLOOD GAS pH 7.42 (7.35-7.45)
[2021-01-31 07:53] LABS: ALBUMIN 2.9 gm/dL (3.5-5.0); BILIRUBIN,TOTAL 0.4 mg/dL (0.0-1.0); CALCIUM 8.5 mg/dL (8.4-10.2); CREATININE, serum 0.73 (0.52-1.25); POTASSIUM 3.5 mmol/L (3.4-5.0); TOTAL PROTEIN 5.9 gm/dL (6.4-8.2)
[2021-01-31 08:01] LABS: MEAN CELL VOLUME 90 fl (80.0-100.0); MEAN CORPUSCULAR HGB CONC 30 g/dl (33.0-37.0); MEAN PLATELET VOLUME 10.4 fl (7.4-10.4); PLATELET COUNT 348 K/mm3 (130-400); RED BLOOD COUNT 3.21 M/mm3 (4.10-5.30); REDCELL DISTRIBUTION WIDTH-CV 13.8 % (11.5-14.5)
[2021-01-31 08:16] LABS: HEMOGLOBIN 8.6 g/dl (12.5-16.0); MEAN CORPUSCULAR HEMOGLOBIN 27 pg (27.0-31.0)
[2021-01-31 08:28] VITALS: BP 133/107; PULSE 80; TEMP 98.2
[2021-01-31 08:54] LABS: BAND 3 % (0-10); LYMPHOCYTE 7 % (20.0-51.0); NEUTROPHILS 83 % (42.0-75.2); PLATELET ESTIMATE NORMAL (NORMAL)
[2021-01-31 08:55] LABS: HYPOCHROMIA 3+
--- NOTE | 2021-01-31 09:21 | NUR ---
Pt assessment complete. Pt is laying in bed upon entry, she is alert but not oriented. Breathing appears to be unlabored but pt has a wet cough and is now requiring 10L O2 d/t low O2 sat this am. Denies any pain. Heparin infusing per protocol. Fluids held for now per Delisa MOORE. Pt pleasant with cares. No needs at this time.
--- NOTE | 2021-01-31 10:35 | NUR ---
I spoke with patient in her room. She was pleasant and smiling but her words made no sense. Support provided to her. I then called her son Calin @ [phone]. He reports that he and his are packing to come to [place] now. They are hoping to be here late Sunday evening. He reports that he is available by phone anytime and wants reports--especially if things are worsening. I explained that his mother's oxygen needs were continuing to increase and currently are at 10L/NC. We talked about the feeding tube for giving medications vs concern with her pulling it out. I did share with him that she has removed 5 different IV sites in the last 24 hours. He stated and restated that she is a DNR/DNI and that he didn't want to do anything invasive that would violate his DPOA-HC instructions. I did share this conversation with Delisa MOORE including that I had advised him that hospice care may be the next step if things do not improve. He is familiar with the [facility] as that is where his father 5 years ago and he was very pleased with their care. He stated he would like to talk with the provider today and will have his phone with him at all times. He would like to continue supportive care until they can get here.
--- NOTE | 2021-01-31 10:36 | NUR ---
Initial visit; Patient hard of hearing but understood Senior Investment Analyst and was pleased to have prayer this morning.
--- NOTE | 2021-01-31 11:34 | NUR ---
WU care supervised by this instructor, agree with documentation.
[2021-01-31 11:40] VITALS: BP 145/91; PULSE 84; TEMP 98.2
--- NOTE | 2021-01-31 12:42 | NUR ---
Pt refusing to eat at this time. She occasionally is moaning but denies pain.
--- NOTE | 2021-01-31 14:09 | NUR ---
A palliative care consult was ordered. Radha, Palliative Care Nurse, notified ERMA that the patient's son, Calin, is on his way up here from [place]. Calin would like to continue supportive care until family gets here and then may consider hospice at that time. ERMA [facility]
[2021-01-31 15:58] VITALS: BP 115/65; PULSE 82; TEMP 97.6
--- NOTE | 2021-01-31 18:19 | NUR ---
Pt did not want to sit in chair today. Was able to get up to wheelchair and reposition with one assist in standing. Pt remained very confused. Removed her O2 frequently, bilateral hand mitts used this afternoon to assist in keeping oxygen in place. Heparin drip infusing per protocol. Rita ALEXANDER. Pt did have two liquid BM's. Refused to eat once diet was initiated. Fall precautions in place.
[2021-01-31 19:31] VITALS: BP 136/68; PULSE 82; TEMP 97.7
--- NOTE | 2021-01-31 20:00 | NUR ---
Assessment complete. Patient currently resting comfortably. Lung sounds are coarse with crackles throughout. No edema is noted. Patient on 10 liters hi-freida oxygen. Mitts in place, as patient consistently takes out IV's and her oxygen off. Family is updated on patient's status. Bed alarm set, will continue to closely monitor.
[2021-02-01] VITALS (7 sets, daily range): BP systolic 129–147; BP diastolic 65–76; PULSE 73–100; TEMP 97.9–98.9
[2021-02-01 02:52] LABS: MEAN CELL VOLUME 87 fl (80.0-100.0); MEAN CORPUSCULAR HGB CONC 30 g/dl (33.0-37.0); PLATELET COUNT 361 K/mm3 (130-400); RED BLOOD COUNT 3.16 M/mm3 (4.10-5.30); REDCELL DISTRIBUTION WIDTH-CV 13.7 % (11.5-14.5)
[2021-02-01 02:54] LABS: HEMATOCRIT 27.6 % (37.0-47.0); HEMOGLOBIN 8.4 g/dl (12.5-16.0); MEAN CORPUSCULAR HEMOGLOBIN 27 pg (27.0-31.0)
[2021-02-01 03:01] LABS: CALCIUM 8.7 mg/dL (8.4-10.2); CREATININE, serum 0.72 (0.52-1.25); MAGNESIUM 2.4 mg/dL (1.6-2.3); POTASSIUM 3.7 mmol/L (3.4-5.0)
--- NOTE | 2021-02-01 07:25 | NUR ---
Patient resting in bed at this time. Heparin gtt running as ordered. O2 running at 10 L. Patient denies any pain or discomfort at this time. Denies any further needs. Will continue to monitor. Call light within reach. Fall percautions in place.
--- NOTE | 2021-02-01 12:52 | NUR ---
Scheduled meds given. Heparin gtt changed to 1600 units/hour per protocol. IV K+ replacement infusing, patient tolerating well. Upon auscultation of lungs, coarse crackles were present in all palmer. RT decreased O2 to 6L, pt is sat at 95%. Patient is resting in bed at this time. No signs of pain or discomfort. Will continue to monitor. Call light within reach. Fall percautions in place.
--- NOTE | 2021-02-01 14:20 | NUR ---
Spoke with son Calin by phone this afternoon. Gave him an update on his Mom that she is now eating some pureed food and thickened drinks. Her 02 needs are down to 6L/NC and her WBC is down from yesterday--although still high. He is asking if she should go back to memory unit at [facility] or if should go to the hospice house. Advised that she is being closely monitored with her eating and that we are providing the "safest food consistency" that we can. Her dementia is probably what is leading to a lot of her swallowing issues. She seems very content and was pleased to learn that Calin was coming to see her. calin advises that over a year ago she had been combative and aggressive but has not had any reports of such behavior in the last year. I told him that it would be his decision as to goals of care but that we are concerned that this MO, along with aspiration, and the infection have taken their toll on her health. The dementia will continue to get worse, probably has already effected her ability to eat sufficiently. We have been able to start some of her oral medications. I did advise him that the hospice house does appear to have openings if that is the direction that they choose to go.
--- NOTE | 2021-02-01 16:03 | NUR ---
Housing Management Representative faxed updates to Sabrina with [facility]. The patient's son is to arrive on 02/02 in the evening from [place] to decide on course of care.
--- NOTE | 2021-02-01 16:37 | NUR ---
Patient lying in bed watching tv at this time. Hep XA came back 0.37, no change made per protocol. Patient continues to be pleasently confused with no signs of pain or discomfort. Mits on bilaterally to ensure patient does not pull out IVs as she did on previous shift. Will continue to monitor. Call light within reach. Fall precautions in place.
--- NOTE | 2021-02-01 18:43 | NUR ---
Report given to MIR Montana. Heprin bag changed. There are no signs of pain or discomfort at this time. O2 running at 6L via nasal cannula. Fall precautions in place. Call light within reach.
--- NOTE | 2021-02-01 20:00 | NUR ---
Patient resting in bed. She is alert and pleasantly confused. Heparin gtt infusing into left forearm IV. She wears 6 liters of oxygen and appears comfortable. Salinas catheter draining yellow urine. Lung sounds are coarse with crackles. No new concerns. Bed alarm set.
[2021-02-02 03:20] VITALS: BP 143/82; PULSE 71; TEMP 98
--- NOTE | 2021-02-02 06:44 | NUR ---
Pt. lying awake in bed at this time. Heparin gtt running at 18.5 per protocol. O2 running at 6 L via nasal cannula. No signs of pain, discomfort, or futher needs at this time. Will continue to monitor. Call light within reach. Fall percautions in place.
[2021-02-02 07:38] LABS: MEAN CELL VOLUME 89 fl (80.0-100.0); MEAN CORPUSCULAR HGB CONC 30 g/dl (33.0-37.0); MEAN PLATELET VOLUME 10.1 fl (7.4-10.4); PLATELET COUNT 415 K/mm3 (130-400); RED BLOOD COUNT 3.28 M/mm3 (4.10-5.30)
[2021-02-02 07:39] LABS: HEMATOCRIT 29.3 % (37.0-47.0); HEMOGLOBIN 8.7 g/dl (12.5-16.0); MEAN CORPUSCULAR HEMOGLOBIN 27 pg (27.0-31.0)
[2021-02-02 07:53] LABS: CALCIUM 8.7 mg/dL (8.4-10.2); CREATININE, serum 0.65 (0.52-1.25); MAGNESIUM 2.2 mg/dL (1.6-2.3); POTASSIUM 3.4 mmol/L (3.4-5.0)
[2021-02-02 08:25] VITALS: BP 151/71; PULSE 73; TEMP 98
--- NOTE | 2021-02-02 11:13 | NUR ---
Tape Controlled Machine Stitcher attended clinical rounds with the team. On 02/01 this SW contacted Luz at the [facility] and as of yesterday they do have beds available.
[2021-02-02 11:14] VITALS: BP 139/83; PULSE 78; TEMP 98
--- NOTE | 2021-02-02 11:26 | NUR ---
Federal Mediation Commissioner contacted MIR Escobar at [facility]. Luz report she reviews the notes this SW sent on 02/01. Luz reports that she saw that the patient is on a pureed diet and they cannot accommodate that diet there. Luz reports that if the family decides to return there on hospice that she would have to staff with the director before they could accept the patient back. ERMA faxed updates to Luz.
--- NOTE | 2021-02-02 11:48 | NUR ---
Heparin gtt DC'd.
--- NOTE | 2021-02-02 14:51 | NUR ---
Pt. check and changed. Darlin/cath care performed, barrier cream applied. Small amount of reddness noted in the groin area. Bed in chair position with pillow applied under Pts. left side. SCDS applied. Mitts on bilaterally due to Pt. pulling out IVs and oxygen on prior shift. Will continue to monitor. Call light within reach. Fall precautions in place.
[2021-02-02 15:05] VITALS: BP 149/90; PULSE 78; TEMP 98.5
--- NOTE | 2021-02-02 15:15 | NUR ---
Made phone call to Calin who is still driving to get here. Spoke with he and his , Lyssa. They are wanting to wait until they get here and see Charleen to make final decision but team is feeling that hospice referral is appropriate with poor po intake, aspiration risk, recent STEMI, pyelonephritis, ongoing 02 needs and poor physical stamina. Dementia is quite notable. Calin did ask that I send referral to [facility] for consideration. I did advice him that Serena did advise us that they could not provide a pureed diet for patient. Son should be here tomorrow to make final decisions after he has seen his mother. Support provided.
--- NOTE | 2021-02-02 17:31 | NUR ---
Patient had uneventful day. O2 titrated down to 4 L, patient is sating at 98%. Patient's son, Barry, is traveling here make desicions regarding palliative care. No signs of pain, discomfort, or needs at this time. Will continue to monitor. Call light within reach. Fall precautions in place.
[2021-02-02 19:34] VITALS: BP 106/66; PULSE 81; TEMP 98.3
--- NOTE | 2021-02-02 20:15 | NUR ---
Patient assessed at this time. Alert, disoriented due to dementia. No outward s/sx of pain or discomfort noted, such as facial grimacing and moaning. Peripheral IV to right hand with fluids running per orders. INT to left forearm flushed. Site without redness, warmth, swelling, and pain. Patient on oxygen at 4 L/min via NC. Moist cough noted. LS coarse crackles throughout. HRR. Telemetry in place: normal sinus. Capillary refill less than 3 seconds. Non-tenting skin turgor. BSAx4. Abdomen soft and non-tender. No edema. SCDs on. Staff assists with repositiong in bed. Indwelling conde catheter patent, and draining cloudy yellow urine with sediment present. Catheter and perineal hygiene care provided. High fall risk precautions in place. Bed alarm on.
[2021-02-03] VITALS (9 sets, daily range): BP systolic 144–159; BP diastolic 66–116; PULSE 75–89; TEMP 97.5–98.7
--- NOTE | 2021-02-03 05:17 | NUR ---
Patient has been resting in bed. High fall risk precautions remain in place. Patient has been repositioned in bed. IV fluids continue per orders.
[2021-02-03 07:29] LABS: MEAN CELL VOLUME 90 fl (80.0-100.0); MEAN CORPUSCULAR HGB CONC 30 g/dl (33.0-37.0); PLATELET COUNT 449 K/mm3 (130-400); RED BLOOD COUNT 3.26 M/mm3 (4.10-5.30); REDCELL DISTRIBUTION WIDTH-CV 14.1 % (11.5-14.5)
[2021-02-03 07:40] LABS: CALCIUM 8.4 mg/dL (8.4-10.2); CREATININE, serum 0.64 (0.52-1.25); HEMATOCRIT 29.2 % (37.0-47.0); HEMOGLOBIN 8.6 g/dl (12.5-16.0); MEAN CORPUSCULAR HEMOGLOBIN 26 pg (27.0-31.0); POTASSIUM 3.4 mmol/L (3.4-5.0)
[2021-02-03 08:13] LABS: EOSINOPHIL 2 % (0-4); HYPOCHROMIA 4+; LYMPHOCYTE 9 % (20.0-51.0); METAMYELOCYTE 1 % (0-0); NEUTROPHILS 80 % (42.0-75.2); PLATELET ESTIMATE INCREASED (NORMAL)
--- NOTE | 2021-02-03 10:37 | NUR ---
Pt assessment completed and charted, pt has nursing program coordinator & instructor also assisting w/ cares. Pt laying in bed, on 4L NC this morning during bedside report. O2 increased to 5L NC d/t saturations i@ 88. O2 sats increased to 90-93% on 5L NC, breathing is labored, shallow, tachypneic. LS coarse throughout. HRRR, pt on tele. Salinas in place draining yellow urine/gritty. Cath care provided. No edema noted. Pulses strong. Pt alert, difficulty to assess orientation, pt needs verbal cueing often, minimal verbal responses from pt. Coccyx reddened, barrier cream applied. RH and LFA INT IV both flush w/o issues. Elevated BP this morning 158/116, rechecked at this time 153/78.
--- NOTE | 2021-02-03 13:20 | NUR ---
I have met Calin and his Lyssa at bedside. He has been talking with his mother about memories he has of past events with her. She smiles and nods but doesn't always seem to remember what he is talking about. He did request that I call [facility] for an appt so they can meet with them today and is agreeable to transfer there tomorrow. He reports that it has been a year since he has seen his mother and is very aware of the changes that are occuring. Support provided. We are waiting on Dr Quispe and the team to visit with family at this time.
--- NOTE | 2021-02-03 13:25 | NUR ---
The patient's son, Calin, arrived to the hospital. Radha, palliative care nurse, reports that the patient's son and family have an appointment at the hospice house today around 1500. SW to continue to follow.
--- NOTE | 2021-02-03 13:56 | NUR ---
Primary nurse was assisted with [phone] patient care by [facility] student Regi Ford and [employer] instructor Tanvi Preston MSN, RN.
--- NOTE | 2021-02-03 14:26 | NUR ---
Dr Quispe has met with Calin and his and they are wanting to pursue hospice placement. The family has gone to talk with [facility] at this time and then plan to return to spend more time with Charleen. Support provided to family, questions invited and answered.
--- NOTE | 2021-02-03 16:30 | NUR ---
Radha, Palliative Care Nurse, notified ERMA that Luz from the hospice house informed her that they are able to take the patient tomorrow at 1000. They are requiring another COVID test. ERMA notified the PA. ERMA confirmed from Lu[facility] at [facility] that a transport time at 1000 would work. ERMA attempted to contact [facility] to set up transport. They did not answer and ERMA is unable to leave a message. *Discharge plan: [facility]*
--- NOTE | 2021-02-03 16:39 | NUR ---
Phone call from Luz at [facility] that they will plan to admit pt at 1000 tomorrow after Covid testing is completed. Pt has been given a comfort quilt and we will continue to support pt moving to comfort care as layed out by physician orders.
--- NOTE | 2021-02-03 18:40 | NUR ---
Pt laying in bed, refused dinner tray. Pt receiving potassium to RH w/o issues, currently on 3rd bag. pt remains on 4-5L NC, satting 90-92%.
--- NOTE | 2021-02-03 23:51 | NUR ---
ASSESSMENT COMPLETE. PT ALERT AND OX 2. WHEN ENTERING ROOM 02 WAS OFF. PUT BACK ON. POTASSIUM INFUSED PER ORDER. CRUSHED PILLS AND PUT IN APPLESAUCE PT SWALLOWED ON BITE AND REFUSED ANY MORE. OFFERED FLUIDS AND ALSO REFUSED. TELE- NS. REPORT TO BE GOING COMFORT CARE TOMORROW. [facility] AT 10AM TRANSPORT. PATE YELLOW CLOUDY URINE TO DD. NEEDS MET. BED ALARM AND CALL LIGHT WI REACH.
[2021-02-04 03:03] VITALS: BP 157/77; PULSE 75; TEMP 98.2
--- NOTE | 2021-02-04 05:00 | NUR ---
PT HAS BEEN UP MOST OF THE NIGHT. OFTEN WILL FIND PT WITHOUT O2 ON AND REMINDED TO KEEP ON. PT PLEASENTLY CONFUSED AND NEEDS CONSTANT REMINDERS. COVID TEST WAS NEGATIVE. JUST NOW RESTING W EYES CLOSED. ANTICPATE DC THIS AM.
--- NOTE | 2021-02-04 07:00 | NUR ---
Report with MIR Springer. Pt resting in bed with RT in room for tx. No needs reported. Call light in reach.
[2021-02-04 08:14] VITALS: BP 154/70; PULSE 78; TEMP 98.3
[2021-02-04 09:14] VITALS: BP 154/70; PULSE 78; TEMP 98.3
[2021-02-04] MEDS ORDERED: SYSTANE 0.3-0.1 EACH OP (09:14)
[2021-02-04] MEDS ORDERED: ATIVAN 1MG T1 MG/TAB PO (09:14)
[2021-02-04] MEDS ORDERED: ROXANOL 20MG20 MG/ML SL (09:14)
[2021-02-04] MEDS ORDERED: DULCOLAX S10 MG/SUPP RC (09:14)
[2021-02-04] MEDS ORDERED: TRANSDERM-0.5 MG/21 TD (09:14)
--- NOTE | 2021-02-04 09:31 | NUR ---
ERMA faxed the patient's negative COVID results to Luz at [facility]. The patient is to discharge today, 02/04, to the [facility]. Transportation was scheduled at 1000, via [facility]. ERMA informed the patient's son (Calin), RN, and Luz at [facility] of the time. They were all agreeable to the time. ERMA also read the IM and EMS Transfer Consent Form outloud to Calin over the phone. Calin verbalized understanding and gave ERMA approval to sign the form on his behalf. ERMA updated Serena AL. No additional needs at this time.
--- NOTE | 2021-02-04 10:13 | NUR ---
Report called to Angélica, nurse at [facility]. Pt discharged to [facility] via EMS.
--- NOTE | 2021-02-04 11:51 | NUR ---
Primary nurse was assisted with [phone] patient care by [employer] student Sinai Kramer and [facility] instructor Tanvi Preston MSN, RN.
== END 2021-02-04 10:15 | disposition hospice, inpatient (51) | DRG 871 ==
LOC: COL.ER 09:18 → MEDICAL 11:50
PROVIDERS: Emergency Medicine; Internal Medicine; Physician Assistant; Student in an Organized Health Care Education/Training Program; ADMIT Family Medicine
DX: A41.9 Sepsis, unspecified organism (principal); J96.01 Acute respiratory failure with hypoxia; J69.0 Pneumonitis due to inhalation of food and vomit; I21.09 ST elevation (STEMI) myocardial infarction involving other coronary artery of anterior wall; N12 Tubulo-interstitial nephritis, not specified as acute or chronic; F03.91 Unspecified dementia, unspecified severity, with behavioral disturbance; I50.30 Unspecified diastolic (congestive) heart failure; E87.0 Hyperosmolality and hypernatremia; Z51.5 Encounter for palliative care; Z66 Do not resuscitate; R65.20 Severe sepsis without septic shock; J44.9 Chronic obstructive pulmonary disease, unspecified; F32.9 Major depressive disorder, single episode, unspecified; R53.81 Other malaise; G47.00 Insomnia, unspecified; D64.9 Anemia, unspecified; D47.3 Essential (hemorrhagic) thrombocythemia; E87.6 Hypokalemia; K44.9 Diaphragmatic hernia without obstruction or gangrene; K52.9 Noninfective gastroenteritis and colitis, unspecified; I11.0 Hypertensive heart disease with heart failure; Z20.822 Contact with and (suspected) exposure to COVID-19; Z90.49 Acquired absence of other specified parts of digestive tract; Z87.891 Personal history of nicotine dependence
CPT/HCPCS: 99222-AI; 99232-AI; 99233-AI; 99239; A9284; J0696; J1644; J2060; J2270; J2543; J3370; J3475; J3480; J7030; J7050; Q9967